=== PATIENT | female | born 1970 ===

== ENCOUNTER 2018-09-08 16:22 | Emergency (ER) | payer OTHER ==
[2018-09-08 16:51] VITALS: BMI 34.4
[2018-09-08 16:53] VITALS: BP 109/67; PULSE 59; RESP 18; TEMP 98.2; O2SAT 99
--- NOTE | 2018-09-08 17:06 | C.PDOC ---
History Of Present Illness 48 yo female, presnets with left foot pain x 8 days. no known trauma. states "she walks alot". no fevers, Time Seen by Provider: 09/08/18 16:54 Chief Complaint (Nursing): Lower Extremity Problem/Injury Past Medical History Reviewed: Historical Data, Nursing Documentation, Vital Signs Vital Signs: Last Vital Signs Temp 98.2 F 09/08/18 16:51 Pulse 59 L 09/08/18 16:51 Resp 18 09/08/18 16:51 BP 109/67 09/08/18 16:51 Pulse Ox 99 09/08/18 16:51 Surgical History: Cholecystectomy - [facility] Procedures EXCIS DEBRIDE OF WOUND, INFECT, OR BURN (02/28/15) SOFT TISSUE INCISION NEC (02/28/15) Family History: States: Unknown Family Hx - Social History Hx Alcohol Use: No Hx Substance Use: No - Immunization History Hx Tetanus Toxoid Vaccination: No Hx Influenza Vaccination: No Hx Pneumococcal Vaccination: Yes Review Of Systems Musculoskeletal: Positive for: Foot Pain ((+)left) Physical Exam - Physical Exam Appears: Well, No Acute Distress Skin: Normal Color, Warm, Dry Eye(s): bilateral: Normal Inspection, PERRL, EOMI Nose: Normal Throat: Normal Neck: Normal Cardiovascular: Rhythm Regular Respiratory: Normal Breath Sounds Gastrointestinal/Abdominal: Normal Exam Back: Normal Inspection Extremity: Normal ROM, Tenderness ((+)mild to left mid foot), No Deformity, No Swelling ED Course And Treatment O2 Sat by Pulse Oximetry: 99 Medical Decision Making Medical Decision Making: plantar fascitis vs msk pain vs arthrtis r/o fx- imaging pending imaging neg as read by me. pain improved. no e/o of erytehma fever no concern for infection gout. Disposition - Disposition Referrals: Podiatry Clinic [Outside] Disposition: HOME/ ROUTINE Disposition Time: 17:00 Condition: STABLE Additional Instructions: see specialist in next 1-2 days return to any er with worsening. Prescriptions: Naproxen 500 mg PO BID PRN #14 tab PRN Reason: Pain, Mild (1-3) Instructions: Foot Sprain (DC) Forms: [employer] (Spanish) - Clinical Impression Clinical Impression: Foot pain
--- NOTE | 2018-09-08 18:46 | RAD ---
PROCEDURE: Left Foot Radiographs. HISTORY: pain COMPARISON: None available. FINDINGS: BONES: No acute displaced fracture. JOINTS: No dislocation. SOFT TISSUES: Soft tissue swelling. No evidence of radiopaque foreign body. OTHER FINDINGS: None. IMPRESSION: Soft tissue swelling. No acute displaced fracture or dislocation identified. If symptoms persist, or if there is continued clinical concern, x-ray follow-up in 7-10 days should be considered.
== END 2018-09-08 17:57 | disposition home or self-care (01) ==
LOC: C.ER 16:22
DX: M79.672 Pain in left foot (principal)
CPT/HCPCS: 73630; 96372; 99283; J1885